=== PATIENT | female | born 1960 | race Caucasian/White ===

== ENCOUNTER → 2019-03-07 17:16 | Outpatient (CLI) | payer OTHER, SELFPAY ==
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
== END ==
DX: M54.14 Radiculopathy, thoracic region (principal); M47.812 Spondylosis without myelopathy or radiculopathy, cervical region
CPT/HCPCS: 72146

== ENCOUNTER 2021-10-06 08:09 | Emergency (ER) | payer OTHER, SELFPAY ==
[2021-10-06 08:11] VITALS: PULSE 108; O2SAT 93
--- NOTE | 2021-10-06 08:18 | DI.RAD.S_ITS ---
PROCEDURE: XR CHEST 1V INDICATIONS: chest pain TECHNIQUE: One view of the chest was acquired. COMPARISON: [facility], CR, CHEST 1 VIEW, 01/28/2017, 15:01. [facility], CT, CT CHEST WITHOUT CONTRAST, 06/18/2020, 12:19. [facility], CR, XR RIBS BILATERAL, 05/27/2020, 9:35. [facility], CR, XR CHEST 2 VIEWS, 09/14/2017, 10:41. [facility], CR, CHEST 1 VIEW, 01/28/2017, 15:14. FINDINGS: Surgical changes and devices: There are epidural neurostimulator leads redemonstrated with the tips extending to the level of T4. Lungs and pleura: Blunting of the right costophrenic angle is redemonstrated consistent with pleural thickening as seen on the prior CT. Associated linear right basilar opacities likely represent scarring. Left lung is clear. No definite pleural effusions or pneumothorax. Mediastinum: Mediastinal contours appear normal. Heart size is normal. Bones and chest wall: Multiple chronic right rib fractures are redemonstrated. Overlying soft tissues appear unremarkable. IMPRESSION: 1. No definite acute cardiopulmonary disease. 2. Right basilar pleural thickening and scarring redemonstrated as well as multiple chronic right rib fractures. Dictated by: Robbie Britton M.D. on 10/06/2021 at 9:05 Approved by: Robbie Britton M.D. on 10/06/2021 at 9:09
[2021-10-06 08:22] VITALS: BP 141/85; PULSE 107; RESP 24; TEMP 36.9; O2SAT 97; BMI 24.4
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
[2021-10-06 08:30] VITALS: BP 123/71; PULSE 99; RESP 18; O2SAT 100
[2021-10-06] MEDS: ASPIRIN 81 MG CHEW TAB 324 MG PO (08:33)
[2021-10-06] MEDS: SODIUM CHLORIDE 0.9% 1,000 ML 1000 ML IV (08:34)
[2021-10-06 08:36] LABS: Add Manual Diff / Slide Review NO; Basophils Absolute Auto 0 /uL (0-100); Basophils Percent Auto 0.7 % (0-2); Eosinophils Absolute Auto 100 /uL (0-450); Eosinophils Percent Auto 1.9 % (2-4); Hematocrit 43.3 % (36-46); Hemoglobin 14.5 g/dL (12.0-16.0); Lymphocytes Absolute Auto 2400 /uL (1100-4500); Lymphocytes Percent Auto 39.3 % (25-40); Mean Corpuscular HGB Conc 33.5 % (30-36); Mean Corpuscular Hemoglobin 30.4 PG (26-34); Mean Corpuscular Volume 90.7 fL (80-100); Monocytes Absolute Auto 200 /uL (0-900); Monocytes Percent Auto 3.7 % (3-14); Neutrophils Absolute Auto 3400 /uL (1500-7000); Neutrophils Percent Auto 54.4 % (50-75); Platelet Count 206 X10^3/uL (150-400); Red Blood Cell Count 4.77 X10^6/uL (4.0-5.2); Red Cell Distribution Width 12.8 % (11.6-14.8); White Blood Cell Count 6.2 X10^3/uL (4.5-11.0)
[2021-10-06 08:40] LABS: Alanine Aminotransferase 16 IU/L (<35); Albumin 4.4 g/dL (3.5-5.0); Albumin Globulin Ratio 1.5 (1.0-2.8); Alkaline Phosphatase 55 U/L (38-126); Aspartate Aminotransferase 23 IU/L (14-36); BUN Creatinine Ratio 17.9 (6-22); Bilirubin Total 0.3 mg/dL (0.2-1.3); Blood Urea Nitrogen 14 mg/dL (7-17); Calcium 9.3 mg/dL (8.4-10.2); Carbon Dioxide 23 mmol/L (22-32); Chloride 104 mmol/L (98-107); Creatine Kinase 56 U/L (30-135); Estimated Glomerular Filt Rate > 60.0 mL/min (>60); Globulin 2.9 g/dL (1.7-4.1); Glucose 179 mg/dL (80-110); HEMOLYSIS < 15 (0-50); Lipase 68 U/L (23-300); Sodium 138 mmol/L (137-145); Total Protein 7.3 g/dL (6.3-8.2)
[2021-10-06 08:50] LABS: Troponin I < 0.012 ng/mL (0.01-0.034)
[2021-10-06 09:00] VITALS: PULSE 84; RESP 12; O2SAT 93
[2021-10-06 09:30] VITALS: PULSE 85; RESP 11; O2SAT 97
[2021-10-06 09:41] VITALS: BP 108/59; PULSE 87; RESP 15
--- NOTE | 2021-10-06 09:43 | PC.NURSE ---
pt states she got out of her car this AM at work and felt like she was going to faint. thought her blood sugar was low and ate a banana and a candy bar. states she starting shaking and hyperventilating and felt like she was getting electric jolts. has a spinal stimulator which she turned off after feeling this way which has helped. denies pain at this time.
== END 2021-10-06 09:45 | disposition home or self-care (01) ==
PROVIDERS: Emergency Provider Emergency Medicine; PCP Family Medicine
DX: R42 Dizziness and giddiness (principal); F17.210 Nicotine dependence, cigarettes, uncomplicated
CPT/HCPCS: 36415; 71045; 80053; 82550; 83690; 84484; 85025; 93005; 96360; 99284

== ENCOUNTER → 2024-09-10 16:59 | Outpatient (CLI) | payer OTHER, SELFPAY ==
--- NOTE | 2024-09-10 17:00 | DI.RAD.S_ITS ---
PROCEDURE: XR CHEST 2V INDICATIONS: Cough TECHNIQUE: 2 views of the chest were acquired. COMPARISON: [facility], CR, XR CHEST 1V, 10/06/2021, 8:21. FINDINGS: Surgical changes and devices: Stimulator leads are seen projecting in the region of upper thoracic spine. Lungs and pleura: Lungs are clear. No pleural effusions or pneumothorax. Mediastinum: Mediastinal contours are normal. Heart size is normal. Bones and chest wall: No suspicious bony abnormalities. Old right anterolateral mid to lower rib fractures are again seen. Soft tissues appear unremarkable. IMPRESSION: No acute cardiopulmonary pathology. Dictated by: Kenan Yañez M.D. on 09/10/2024 at 17:21 Approved by: Kenan Yañez M.D. on 09/10/2024 at 17:21
== END ==
LOC: RAD 17:00
PROVIDERS: PCP Family Medicine; Referring Provider Nurse Practitioner Family; Visit Provider Nurse Practitioner Family
DX: R05.9 Cough, unspecified (principal)
CPT/HCPCS: 71046